=== PATIENT | female | born 1955 | race Asian ===

== ENCOUNTER 2019-04-28 15:22 | Outpatient (RCR) | payer MEDICARE, MEDICAID, SELFPAY ==
[2019-04-28 17:22] LABS: Add Urine Microscopic? NO
[2019-04-28 19:58] LABS: Urine Appearance Clear (CLEAR); Urine Color Yellow (Yellow); pH Urine 5 (5-7)
[2019-04-28 19:59] LABS: Bilirubin Urine Neg (NEGATIVE); Blood Urine Neg (Negative); Glucose Urine UA 2+ (Normal); Ketones Urine Negative (Negative); Leukocyte Esterase Urine Negative (Negative); Nitrate Urine Negative (Negative); Protein Urine Neg (Negative); Specific Gravity, Urine 1.015 (1.005-1.030); Urobilinogen Urine Norm (Negative)
--- NOTE | 2019-04-29 08:43 | ONC FU_ITS ---
Dr. Worrell Patient Follow-Up Note Patient: Judith Herr Unit #: [id number]: 1955 Dicatated By: Srikanth Worrell M.D.Date of Visit:Apr 28, 2019 Onc Med Follow-up/Prog Note Chief Complaint: Breast cancer. History of Present Illness: This is a 63 year-old woman with ductal carcinoma in situ of the left breast, ER/MA positive. She had presented with a lump in the left breast, which she first noticed about a month and a half ago. Unilateral left breast mammogram and ultrasound on 10/21/2018 was BI-RADS 4B, suspicious. Mammogram showed focal asymmetric oval density in the upper outer quadrant measuring 12 mm. By ultrasound it appeared hypoechoic and slightly lobulated. It measured 1.2 x 0.8 x 1.2 cm. Biopsy was recommended. She then underwent ultrasound-guided biopsy on 11/11/2018. Pathology showed a disrupted intraductal papillary lesion felt to be suspicious for papillary carcinoma. With those findings, she underwent left breast lumpectomy on 11/21/2018. Pathology showed ductal carcinoma in situ, nuclear grade 2/3. The specimen included multiple scattered microscopic foci measuring up to 1.1 cm in aggregate. The posterior margin was noted to be involved. Tumor was noted to within 1 mm of the inferior, medial, anterior, and superior margins. Additional excision at the medial margin showed residual microscopic foci of DCIS which was noted to be present within 1 mm of the margin. There was no invasive carcinoma identified. The tumor was noted to be ER positive at 96% and MA positive at 98%. I had seen her initially on 05/12/2018. At that point she was uncertain whether she would take any additional treatment. However, she did agree to see Dr. Andrea, and she ultimately underwent radiation to the left breast. She completed treatment on 01/27/2019 to a total dose of 5856 cGy. She tolerated it well. Her other medical illnesses include hypertension, type 2 diabetes, and degenerative arthritis. Her prior surgeries include hysterectomy/bilateral salpingo-oophorectomy in 1994. She has only a minimal smoking history, having smoked a long time ago, but only for about a year. She is seen for a follow-up visit. She has been feeling pretty good generally, though her energy is somewhat variable and her appetite also seems to vary somewhat. She does have normal activity, though, and she has gained weight. Her ECOG score is 0. She thinks she had a little fever 2 weeks ago, as she felt linen tech association with headache. She has not had hot flashes or night sweating. Recently she has had some swelling in her eyes and increased sinus congestion, which she assumes is allergy related. She sometimes has cough and she occasionally has sharp pain in her upper left chest area. She does not complain of shortness of breath. She has no complaints. She does report having urinary frequency and nocturia. She was given a prescription for oxybutynin a few months ago, but she had no improvement in her symptoms with it. She has pain in her neck/shoulder area and in her lower back. She also has fairly generalized joint pain. She sometimes has numbness/tingling in her feet. Medications: Fish Oil 1 Capsule (of 100 mg) Oral daily, Janumet 1 Tablet (of 50-1000 mg) Oral daily, Lisinopril-hydroCHLOROthiazide 1 Tablet (of 20-25 mg) Oral daily, Magnesium 1 Tablet (of 250 mg) Oral daily, Super B-Complex 1 Capsule Oral daily, Vitamin C 1 Tablet (of 1000 mg) Oral daily, Vitamin D3 1 Capsule (of 1000 Units) Tablet Oral daily Allergies: mushroom soup, penicillin, and strawberry. Review of Systems: Constitutional - Her energy is variable. She has normal activity. Appetite is also variable. She recently has gained weight. She has no fever, but 2 weeks ago she felt warm and had headache. She has not had night sweating or hot flashes. ECOG score is 0, ENMT - She recently has had swelling around her eyes and sinus congestion, presumable allergy related. No mouth sores. No sore throat or difficulty swallowing, Hematologic/Lymphatic - No abnormal bruising or bleeding, Respiratory - No shortness of breath. She sometimes has cough. She occasionally has sharp pain in the area above her left breast. She has no hemoptysis, Cardiovascular - No angina pain. No palpitations, Gastrointestinal - No nausea or vomiting. No heartburn or acid reflux. No diarrhea or constipation. No blood in the stool or black stools, Genitourinary (F) - She has urinary frequency and nocturia. No dysuria or hematuria. No urgency or incontinence, Musculoskeletal - She has pain in her neck, shoulders, and lower back. She also has fairly generalized joint pain, Neurologic - She has occasional headaches. No dizziness. She sometimes has numbness and tingling in her feet, Psychiatric - She has anxiety and some depression, but she is able to manage it OK. She does not sleep well at night. Vital Signs: Performed on Apr 28, 2019 15:39 Height - 61.50 in Weight - 148.6 lbs (HIGH) BSA - 1.67 sq.m BMI - 27.62 Temperature - 98.3 F (LOW) Pulse - 100 /min Respiration - 22 /min BP - 143/67 mm(hg) (HIGH) O2 Sat - 97 % Pain - 5 Physical Examination: Constitutional - She looks good generally, Eyes - Sclerae nonicteric. Conjunctivae clear, ENMT - No lesions noted in the oral cavity, Hematologic/Lymphatic - No cervical, clavicular, or axillary adenopathy, Respiratory - Lungs are clear with good air movement bilaterally, Cardiovascular - Heart rhythm is regular. There is no murmur, gallop, or rub noted, Abdomen - Soft and non-tender. Liver and spleen are not enlarged. There is no abdominal mass or ascites noted and there is no inguinal adenopathy, Extremities - No edema, Neurologic - No focal neurologic deficits noted. Impression: 1. Patient with ductal carcinoma in situ of the left breast, nuclear grade 2/3, ER/MA positive. 2. She underwent left breast lumpectomy on 11/21/2018. Pathology showed DCIS within 1 mm of multiple surgical margins, and there was involvement of the posterior margin. 3. She reports having loss of taste and smell, and she has had significant weight loss over the past 2 years. The cause is uncertain, though it apparently occurred after she weaned herself off of opiate pain medication. Her other medical illnesses include: 4. Hypertension. 5. Type II diabetes. 6. Degenerative arthritis/degenerative disease of the spine. Initially she was uncertain whether she would take any additional treatment. However, she did agree to see Dr. Andrea, and she ultimately underwent radiation to the left breast. She completed treatment on 01/27/2019 to a total dose of 5856 cGy. She tolerated it well. Plan: I reviewed the pathology and we discussed the fact that with ER/MA positive disease there would be a lower risk for recurrence of the breast cancer or for development of new cancer in the contralateral breast if she were to undergo adjuvant hormonal therapy. She is advised that adjuvant hormonal therapy for intraductal breast cancer has not had an impact on survival, but with treatment she would be less likely to require treatment for breast cancer again in the future. In view of her joint pain, she is not a particularly good candidate for treatment with an aromatase inhibitor. However, she has had previous hysterectomy, so that the likelihood of significant side effects with tamoxifen would be low. Nonetheless, as she is reluctant to take any additional medication, she is declining adjuvant therapy. She will be followed on observation/expectant management. I will see her again in 3 months. In the meantime, I will check urinalysis and culture. She also will be given a prescription for cetirizine 10 mg daily for her allergy symptoms. Signed By: Srikanth Worrell M.D. <<Signature on File>>
== END 2019-05-22 23:59 | disposition home or self-care (01) ==
LOC: ONCMED 15:22
PROVIDERS: Family Provider Family Medicine; PCP Family Medicine; Visit Provider Internal Medicine Medical Oncology
DX: Z08 Encounter for follow-up examination after completed treatment for malignant neoplasm (principal); Z86.000 Personal history of in-situ neoplasm of breast; I10 Essential (primary) hypertension; E11.9 Type 2 diabetes mellitus without complications; M19.90 Unspecified osteoarthritis, unspecified site; Z17.0 Estrogen receptor positive status [ER+]; Z92.3 Personal history of irradiation
CPT/HCPCS: 81003; 99214

== ENCOUNTER 2019-11-16 14:09 | Outpatient (CLI) | payer MEDICARE, MEDICAID, SELFPAY ==
--- NOTE | 2019-11-16 14:20 | MM_ITS ---
WS: [id number] BILATERAL DIGITAL DIAGNOSTIC MAMMOGRAM MAMMOGRAPHY WITH CAD CLINICAL INFORMATION: HX OF BREAST CA HISTORY: Tender left breast. History of left lumpectomy with radiation therapy COMPARISON: October 21, 2018 TECHNIQUE: Bilateral CC, MLO, and ML views. FINDINGS: The breasts are composed of heterogeneous fibroglandular density, which can limit the detection of sm all underlying mass lesions. Postoperative changes lumpectomy upper outer left breast. No suspicious focal mass, asymmetry, calcifications, or architectural distortion. No evidence of charo gnancy. MM/[id number] IMPRESSION: BI-RADS: 2-Benign FOLLOW UP: 1 Year Follow-up Recommend return to annual diagnostic mammography.
== END 2019-11-16 14:10 | disposition home or self-care (01) ==
PROVIDERS: PCP Family Medicine; Visit Provider Internal Medicine Medical Oncology
DX: Z85.3 Personal history of malignant neoplasm of breast (principal)
CPT/HCPCS: 77066

== ENCOUNTER 2019-11-25 15:07 | Outpatient (CLI) | payer MEDICARE, MEDICAID, SELFPAY ==
--- NOTE | 2019-11-28 15:44 | ONC FU_ITS ---
Dr. Worrell Patient Follow-Up Note Patient: Judith Herr Unit #: [id number]: 1955 Dicatated By: Srikanth Worrell M.D.Date of Visit:Nov 25, 2019 Onc Med Follow-up/Prog Note Chief Complaint: Breast cancer. History of Present Illness: This is a 63 year-old woman with ductal carcinoma in situ of the left breast, ER/MT positive. She had presented with a lump in the left breast, which she first noticed about a month and a half ago. Unilateral left breast mammogram and ultrasound on 10/21/2018 was BI-RADS 4B, suspicious. Mammogram showed focal asymmetric oval density in the upper outer quadrant measuring 12 mm. By ultrasound it appeared hypoechoic and slightly lobulated. It measured 1.2 x 0.8 x 1.2 cm. Biopsy was recommended. She then underwent ultrasound-guided biopsy on 11/11/2018. Pathology showed a disrupted intraductal papillary lesion felt to be suspicious for papillary carcinoma. With those findings, she underwent left breast lumpectomy on 11/21/2018. Pathology showed ductal carcinoma in situ, nuclear grade 2/3. The specimen included multiple scattered microscopic foci measuring up to 1.1 cm in aggregate. The posterior margin was noted to be involved. Tumor was noted to within 1 mm of the inferior, medial, anterior, and superior margins. Additional excision at the medial margin showed residual microscopic foci of DCIS which was noted to be present within 1 mm of the margin. There was no invasive carcinoma identified. The tumor was noted to be ER positive at 96% and MT positive at 98%. I had seen her initially on 05/12/2018. At that point she was uncertain whether she would take any additional treatment. However, she did agree to see Dr. Andrea, and she ultimately underwent radiation to the left breast. She completed treatment on 01/27/2019 to a total dose of 5856 cGy. She tolerated it well. I had seen her for a follow-up visit on 04/28/2019. I reviewed potential benefits and adverse effects associated with adjuvant hormonal therapy. She declined treatment. As such, she is being followed on observation/expectant management. Her other medical illnesses include hypertension, type 2 diabetes, and degenerative arthritis. Her prior surgeries include hysterectomy/bilateral salpingo-oophorectomy in 1994. She has only a minimal smoking history, having smoked a long time ago, but only for about a year. She is seen for a follow-up visit. She has been feeling good generally. She has good energy and activity tolerance. ECOG score is 0. Appetite is somewhat variable, but adequate. She does not have fever. She does have some hot flashes, but not bad. She does report having bad allergies. She does not complain of shortness of breath or cough. She has pain occasionally in the upper sternal area. She also has been having soreness/discomfort at times in her left breast. She has no GI or complaints. She does have some arthritis in her hands and knees, and she has some lower back pain. She sometimes has headache. She reports having some numbness in her left hand and in her right foot. Medications: Fish Oil 1 Capsule (of 100 mg) Oral daily, Janumet 1 Tablet (of 50-1000 mg) Oral daily, Lisinopril-hydroCHLOROthiazide 1 Tablet (of 20-25 mg) Oral daily, Magnesium 1 Tablet (of 250 mg) Oral daily, Super B-Complex 1 Capsule Oral daily, Vitamin C 1 Tablet (of 1000 mg) Oral daily, Vitamin D3 1 Capsule (of 1000 Units) Tablet Oral daily Allergies: mushroom soup, penicillin, and strawberry. Review of Systems: Constitutional - Her energy is good and she has been feeling good. She has normal activity. Her appetite is okay and weight is down a few pounds. No fevers or night sweats. She has hot flashes, these have improved. ECOG score is, ENMT - She has seasonal allergies. No mouth sores. No sore throat or difficulty swallowing, Hematologic/Lymphatic - She bruises easily, Respiratory - No shortness of breath. No cough. No pleuritic pain or hemoptysis, Cardiovascular - She has occasional anginal pain. No palpitations, Gastrointestinal - No nausea or vomiting. She has occasional heartburn if she eats late in the evenings. No diarrhea or constipation. No blood in the stool or black stools, Genitourinary (F) - No dysuria or hematuria. She has urinary frequency at night. No urgency or incontinence, Musculoskeletal - She is having alot of arthritic pain in her hands, knees, and lower back, Integumentary - No skin complications, Neurologic - No headache or dizziness. She has numbness and tingling in her hands and feet. No other focal neurologic symptoms, Psychiatric - She has some anxiety. No depression. No insomnia. Vital Signs: Performed on Nov 25, 2019 15:33 Height - 61.50 in Weight - 145.0 lbs (LOW) BSA - 1.66 sq.m BMI - 26.95 Temperature - 97.2 F (LOW) Pulse - 91 /min Respiration - 18 /min BP - 124/66 mm(hg) O2 Sat - 96 % Pain - 5 Physical Examination: Constitutional - She looks good generally, Eyes - Sclerae nonicteric. Conjunctivae clear, ENMT - No lesions noted in the oral cavity, Hematologic/Lymphatic - No cervical, clavicular, or axillary adenopathy, Respiratory - Lungs are clear with good air movement bilaterally, Cardiovascular - Heart rhythm is regular. There is no murmur, gallop, or rub noted, Abdomen - Soft. Liver and spleen are not enlarged. There is no abdominal mass or ascites noted and there is no inguinal adenopathy, Extremities - No edema, Neurologic - No focal neurologic deficits noted. Impression: 1. Patient with ductal carcinoma in situ of the left breast, nuclear grade 2/3, ER/MT positive. 2. She underwent left breast lumpectomy on 11/21/2018. Pathology showed DCIS within 1 mm of multiple surgical margins, and there was involvement of the posterior margin. 3. She reports having loss of taste and smell, and she has had significant weight loss over the past 2 years. The cause is uncertain, though it apparently occurred after she weaned herself off of opiate pain medication. Her other medical illnesses include: 4. Hypertension. 5. Type II diabetes. 6. Degenerative arthritis/degenerative disease of the spine. Initially she was uncertain whether she would take any additional treatment. However, she did agree to see Dr. Andrea, and she ultimately underwent radiation to the left breast. She completed treatment on 01/27/2019 to a total dose of 5856 cGy. She tolerated it well. I had seen her for a follow-up visit in April 2019. I discussed the possibility of adjuvant hormonal therapy. She declined treatment. She is being followed on observation/expectant management. At this point she appears to be doing well clinically with no evidence of recurrence of the breast cancer. Plan: She remains on observation/expectant management. I will see her again with her surveillance mammograms in 1 year. Signed By: Srikanth Worrell M.D. <<Signature on File>>
== END 2019-11-25 15:08 | disposition home or self-care (01) ==
LOC: ONCMED 15:13
PROVIDERS: PCP Family Medicine; Visit Provider Internal Medicine Medical Oncology
DX: Z08 Encounter for follow-up examination after completed treatment for malignant neoplasm (principal); Z85.3 Personal history of malignant neoplasm of breast; I10 Essential (primary) hypertension; E11.9 Type 2 diabetes mellitus without complications; M19.90 Unspecified osteoarthritis, unspecified site; M48.9 Spondylopathy, unspecified; Z92.3 Personal history of irradiation
CPT/HCPCS: G0463

== ENCOUNTER 2020-05-03 13:23 | Emergency (ER) | payer MEDICARE, MEDICAID, SELFPAY ==
[2020-05-03 13:27] VITALS: BP 145/82; PULSE 104; RESP 16; TEMP 36.9; O2SAT 96; BMI 26.8
--- NOTE | 2020-05-03 13:52 | ED_ITS ---
HPI - Allergic Reaction General: Chief complaint: Allergic Reaction Stated complaint: poss allergic reaction Time Seen by Provider: 05/03/20 13:35 History of Present Illness: HPI narrative: 64 yo female, coming a rash on her face and neck she has had a hive for the last several weeks. She is taken hydroxyzine with minimal relief she is avoiding all make-ups creams and lotions to her face. She does not have any make-up on now. She is not hydrating difficulty breathing or swallowing. MD complaint: hives and facial swelling Onset (ago): week(s) Exposure: unknown Associated symptoms: Reports facial swelling and rash; Deny abdominal pain, difficulty breathing, dysphagia, dizziness, hoarseness, itching, lip swelling, nausea, tongue swelling or vomiting Severity: moderate Treatment prior to arrival: other (Hydroxyzine) Previous Allergic Reaction History: none Review of Systems Const: Denies: fever(s), chills, body aches, change in appetite, fatigue or malaise ENMT: Denies: hoarseness Card: Denies: chest pain, edema, dyspnea on exertion or orthopnea Resp: Denies: dyspnea, productive cough or non-productive cough GI: Denies: abdominal pain, nausea, vomiting or dysphagia : Denies: flank pain, difficulty voiding, dysuria, urinary frequency or urinary urgency Skin/Breast: Denies: rash or pruritus Neuro: Denies: dizziness All/Imm: Reports: facial swelling; Denies: tongue swelling PFS ED PFSH: Medical History Enrolled in chronic care management Physical Exam Const: COMMON NORMALS: no acute distress GENERAL APPEARANCE: cooperative and comfortable ORIENTATION/CONSCIOUSNESS: Yes awake, Yes oriented to person, Yes oriented to place and Yes oriented to time HENMT: COMMON NORMALS: normocephalic, atraumatic, hearing grossly normal bilaterally, external ears normal, EAC's normal, TM's normal bilaterally, Normal nasal mucous membranes and turbinates present, moist oral mucous membranes and oropharynx normal HEAD & SCALP: normocephalic and atraumatic NOSE: Normal nasal mucous membranes and turbinates present EXTERNAL EAR: Yes external ears normal EXTERNAL AUDITORY CANAL: EAC's normal TYMPANIC MEMBRANE: TM's normal bilaterally Eye: COMMON NORMALS: Equal, round and reactive pupils present, EOMs intact bilaterally, conjunctivae normal and no scleral icterus CONJUNCTIVA: Yes conjunctivae normal PUPIL: Yes Equal, round and reactive pupils present Neck/C-Spine: COMMON NORMALS: full ROM, no lymphadenopathy, supple and no JVD Lymph: LYMPHATIC: no lymphadenopathy noted and no lymphedema noted Resp: COMMON NORMALS: normal respiratory effort, No retractions, No use of accessory muscles and clear to auscultation bilaterally AUSCULTATION: clear to auscultation bilaterally Cardio: COMMON NORMALS: no JVD, regular rate, regular rhythm and No murmurs present (Cardio) RATE: regular rate RHYTHM: regular rhythm GI: COMMON NORMALS: Soft to palpation and No hepatosplenomegaly present AUSCULTATION: Yes normoactive bowel sounds PALPATION: Yes Soft to palpation, No Tenderness to palpation present (GI), No Guarding due to palpation present (GI) and Yes No hepatosplenomegaly present Extremity: COMMON NORMALS: normal to inspection, capillary refill normal, no clubbing, cyanosis or edema, no calf tenderness and no pedal edema Neuro: SENSORIUM/ORIENTATION: Yes oriented to person, Yes oriented to place and Yes oriented to time Skin: NARRATIVE SKIN EXAM: Urticaria of the face and neck anteriorly none in the extremities or trunk. There is no evidence of oral pharyngeal edema no diff iculty with speech or swallowing. Course Vital Signs: Vital signs: Vital Signs Temperature 98.4 F 05/03/20 13:27 Pulse Rate 75 05/03/20 14:12 Respiratory Rate 16 05/03/20 14:12 Blood Pressure 130/85 05/03/20 14:12 Pulse Oximetry 97 05/03/20 14:12 MDM - Allergic Reaction MDM Narrative: Medical decision making narrative: Refill hydroxyzine start oral steroid refer to dermatology Discharge Plan Discharge Patient Disposition: Home Clinical Impression: Urticaria Condition: Stable Prescriptions: New Medrol (Ren) 4 mg tablets,dose pack See Rx Instructions .ROUTE .COMPLEX Qty: 21 RF: 0 hydroxyzine HCl 25 mg tablet 25 mg PO Q8H PRN (Reason: itching) Qty: 20 RF: 0 No Action lisinopril-hydrochlorothiazide 20-25 mg tablet 1 tab PO DAILY Qty: 14 RF: 0 Discharge Orders: Discharge ED (Routine); Ordered 05/03/20 Ordered By: Rikki Elder Referrals: Ashu Jonas MD [Primary Care Provider] - Discharge Diet: Usual diet Activity Restrictions/Additional Instructions: Case management will call to make an appointment with a mortgage banker for you. Coding Level of Care Code ED Stakeholder Manager for Chg Fwd Exam Comprehensive
[2020-05-03 14:12] VITALS: BP 130/85; PULSE 75; RESP 16; O2SAT 97
[2020-05-03] MEDS: dexamethasone 10 mg/mL INJ IM (14:12)
--- NOTE | 2020-05-03 14:55 | PC.NURSE ---
Read and agree with assessment.
--- NOTE | 2020-05-04 08:52 | DCPLANNER ---
installation manager had message to schedule a follow up appointment for patient with dermatology. installation manager called the office of Dr. Nava, spoke with Ed, a follow up appointment is scheduled for Monday, May 04, 2020 at 10:45. installation manager called patient and gave patient the appointment information. installation manager called the clinic and told the clinic that patient will make the appointment.
--- NOTE | 2020-05-13 14:40 | DCPLANNER ---
Patient had a follow up appointment scheduled for 05.04.20 with dermatology - patient did attend appointment.
== END 2020-05-03 14:12 | disposition home or self-care (01) ==
PROVIDERS: Emergency Provider Family Medicine; PCP Family Medicine
DX: L50.9 Urticaria, unspecified (principal)
CPT/HCPCS: 12345; 96372; 99281; 99283; J1100

== ENCOUNTER 2020-09-27 10:09 | Outpatient (CLI) | payer MEDICARE, MEDICAID, SELFPAY ==
--- NOTE | 2020-09-27 10:18 | MM_ITS ---
WS: [id number] BILATERAL DIGITAL DIAGNOSTIC MAMMOGRAM MAMMOGRAPHY WITH CAD CLINICAL INFORMATION: HX OF BREAST CA;SORENESS IN BOTH BREASTS COMPARISON: November 16, 2019 TECHNIQUE: Bilateral CC, MLO, and ML views. FINDINGS: The breasts are composed of heterogeneous fibroglandular density, which can limit the detection of sm all underlying mass lesions. A few punctate calcifications. Prior left lumpectomy upper outer left br east. No suspicious focal mass, asymmetry, calcifications, or architectural distortion. No evidence of charo gnancy. MM/[id number] IMPRESSION: BI-RADS: 2-Benign FOLLOW UP: 1 Year Follow-up Recommend return to annual diagnostic mammography.
== END 2020-09-27 10:10 | disposition home or self-care (01) ==
LOC: RADSHAW 10:13
PROVIDERS: PCP Family Medicine; Visit Provider Internal Medicine Medical Oncology
DX: Z85.3 Personal history of malignant neoplasm of breast (principal); N64.4 Mastodynia
CPT/HCPCS: 77066

== ENCOUNTER 2021-01-23 16:00 | Outpatient (CLI) | payer MEDICARE, MEDICAID, SELFPAY ==
--- NOTE | 2021-01-24 06:31 | ONC FU_ITS ---
Dr. Worrell Patient Follow-Up Note Patient: Judith Herr Unit #: [id number]: 1955 Dicatated By: Srikanth Worrell M.D.Date of Visit:Jan 23, 2021 Onc Med Follow-up/Prog Note Chief Complaint: Breast cancer. History of Present Illness: This is a 65 year-old woman with ductal carcinoma in situ of the left breast, ER/TN positive. She had presented with a lump in the left breast, which she first noticed about a month and a half ago. Unilateral left breast mammogram and ultrasound on 10/21/2018 was BI-RADS 4B, suspicious. Mammogram showed focal asymmetric oval density in the upper outer quadrant measuring 12 mm. By ultrasound it appeared hypoechoic and slightly lobulated. It measured 1.2 x 0.8 x 1.2 cm. Biopsy was recommended. She then underwent ultrasound-guided biopsy on 11/11/2018. Pathology showed a disrupted intraductal papillary lesion felt to be suspicious for papillary carcinoma. With those findings, she underwent left breast lumpectomy on 11/21/2018. Pathology showed ductal carcinoma in situ, nuclear grade 2/3. The specimen included multiple scattered microscopic foci measuring up to 1.1 cm in aggregate. The posterior margin was noted to be involved. Tumor was noted to within 1 mm of the inferior, medial, anterior, and superior margins. Additional excision at the medial margin showed residual microscopic foci of DCIS which was noted to be present within 1 mm of the margin. There was no invasive carcinoma identified. The tumor was noted to be ER positive at 96% and TN positive at 98%. I had seen her initially on 05/12/2018. At that point she was uncertain whether she would take any additional treatment. However, she did agree to see Dr. Andrea, and she ultimately underwent radiation to the left breast. She completed treatment on 01/27/2019 to a total dose of 5856 cGy. She tolerated it well. I had seen her for a follow-up visit on 04/28/2019. I reviewed potential benefits and adverse effects associated with adjuvant hormonal therapy. She declined treatment. As such, she has been followed on expectant management. Her other medical illnesses include hypertension, type 2 diabetes, and degenerative arthritis. Her prior surgeries include hysterectomy/bilateral salpingo-oophorectomy in 1994. She has only a minimal smoking history, having smoked a long time ago, but only for about a year. She is seen for a follow-up visit. She has been feeling good generally. She says that she does get tired, but she has normal activity. ECOG score 0. Her appetite is not very good. She says she has not been able to smell for a long time. She has not had fever or night sweats. She has just occasional hot flashes. She has some sinus drainage. She has not had sore mouth or throat. She has no shortness of breath or cough. She has pain occasionally in her upper left chest area. She has no GI complaints. She says she is going to be having a screening colonoscopy this year. She has some urinary frequency and nocturia. She has fairly generalized joint pain including her hands, knees, and ankles. She also has some pain in her neck and back. She has had headache occasionally in the left restorationism area and she sometimes has dizziness. She also sometimes has numbness in her hands. Medications: Fish Oil 1 Capsule (of 100 mg) Oral daily, Janumet 1 Tablet (of 50-1000 mg) Oral daily, Lisinopril-hydroCHLOROthiazide 1 Tablet (of 20-25 mg) Oral daily, Magnesium 1 Tablet (of 250 mg) Oral daily, Super B-Complex 1 Capsule Oral daily, Vitamin C 1 Tablet (of 1000 mg) Oral daily, Vitamin D3 1 Capsule (of 1000 Units) Tablet Oral daily Allergies: mushroom soup, penicillin, and strawberry. Vital Signs: Performed on Jan 23, 2021 16:24 Height - 61.50 in Weight - 148.2 lbs (HIGH) BSA - 1.67 sq.m BMI - 27.55 Temperature - 97.5 F (LOW) Pulse - 74 /min Respiration - 18 /min BP - 157/83 mm(hg) (HIGH) O2 Sat - 98 % Pain - 6 Fatigue - 8 Physical Examination: Constitutional - She looks good generally, Eyes - Sclerae nonicteric. Conjunctivae clear, ENMT - No lesions noted in the oral cavity, Hematologic/Lymphatic - No cervical or clavicular adenopathy, Respiratory - Lungs are clear with good air movement bilaterally, Cardiovascular - Heart rhythm is regular. There is no murmur, gallop, or rub noted, Breasts - There is focal mild tenderness in the upper left chest wall/superior breast. There are no breast masses noted. There is no axillary adenopathy, Abdomen - Soft. Liver and spleen are not enlarged. There is no abdominal mass or ascites noted and there is no inguinal adenopathy, Extremities - No edema, Neurologic - No focal neurologic deficits noted. Problem List: 1. Ductal carcinoma in situ of the left breast, nuclear grade 2/3, ER/TN positive. 2. She had loss of taste and smell, and she has had significant weight loss over a period of about 2 years. A specific cause was not determined, though it apparently occurred after she had weaned herself off of opiate pain medication. 3. Hypertension. 4. Type II diabetes. 5. Degenerative arthritis/degenerative disease of the spine. 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 She underwent left breast lumpectomy on 11/21/2018. Pathology showed DCIS within 1 mm of multiple surgical margins, and there was involvement of the posterior margin. Initially she was uncertain whether she would take any additional treatment. However, she did agree to see Dr. Andrea, and she ultimately underwent radiation to the left breast. She completed treatment on 01/27/2019 to a total dose of 5856 cGy. She tolerated it well. She was then followed expectantly, as she had declined adjuvant hormonal therapy. During followup she has been doing well clinically with no evidence of recurrence of the breast cancer. She continues on expectant management. She continues yearly surveillance with bilateral diagnostic mammograms. She will be scheduled for a follow-up visit in 1 year. Signed By: Srikanth Worrell M.D. <<Signature on File>>
== END 2021-01-23 16:01 | disposition home or self-care (01) ==
PROVIDERS: PCP Family Medicine; Visit Provider Internal Medicine Medical Oncology
DX: Z08 Encounter for follow-up examination after completed treatment for malignant neoplasm (principal); Z85.3 Personal history of malignant neoplasm of breast; I10 Essential (primary) hypertension; E11.9 Type 2 diabetes mellitus without complications; M47.9 Spondylosis, unspecified; Z92.3 Personal history of irradiation
CPT/HCPCS: G0463

== ENCOUNTER 2021-11-02 08:22 | Outpatient (CLI) | payer MEDICARE, MEDICAID, SELFPAY ==
--- NOTE | 2021-11-02 08:30 | MM_ITS ---
WS: [id number] DIAGNOSTIC BILATERAL DIGITAL BREAST TOMOSYNTHESIS MAMMOGRAPHY WITH CAD HISTORY: SCREENING, history of LEFT breast cancer. COMPARISON: None available. TECHNIQUE: Bilateral craniocaudad, mediolateral oblique, and mediolateral views are submitted with to mosjude and HERMILA. Computer aided detection utilized. Breast composition: The breasts are heterogeneously dense, which may obscure small masses. Scattered fibroglandular densities are similar to prior studies. Volume loss and mild skin thickening involving the anterior LEFT breast from prior surgery. No recurrent mass. MM/[place] [id number] IMPRESSION: BI-RADS: 2-Benign FOLLOW UP: 1 Year Follow-up
== END 2021-11-02 08:23 | disposition home or self-care (01) ==
LOC: RAD 08:24
PROVIDERS: PCP Family Medicine; Visit Provider Internal Medicine Medical Oncology
DX: Z12.31 Encounter for screening mammogram for malignant neoplasm of breast (principal); Z85.3 Personal history of malignant neoplasm of breast
CPT/HCPCS: 77062

== ENCOUNTER → 2021-12-05 07:43 | Outpatient (BNVA) | payer MEDICARE, MEDICAID, SELFPAY | PROVIDERS: PCP Family Medicine; Visit Provider Podiatrist Foot & Ankle Surgery | DX: E11.8 Type 2 diabetes mellitus with unspecified complications (principal); M21.41 Flat foot [pes planus] (acquired), right foot; M21.42 Flat foot [pes planus] (acquired), left foot; I83.893 Varicose veins of bilateral lower extremities with other complications; M19.072 Primary osteoarthritis, left ankle and foot | CPT/HCPCS: 99203; 99204 ==

== ENCOUNTER 2022-02-26 11:01 | Outpatient (CLI) | payer MEDICARE, MEDICAID, SELFPAY | END 2022-02-26 11:02 | disposition home or self-care (01) | LOC: SPT 11:02 | PROVIDERS: PCP Family Medicine; Visit Provider Podiatrist Foot & Ankle Surgery | DX: Z46.89 Encounter for fitting and adjustment of other specified devices (principal); E11.8 Type 2 diabetes mellitus with unspecified complications; M21.41 Flat foot [pes planus] (acquired), right foot; M21.42 Flat foot [pes planus] (acquired), left foot | CPT/HCPCS: 97760; L3030 ==

== ENCOUNTER 2022-11-07 11:22 | Outpatient (CLI) | payer MEDICARE, MEDICAID, SELFPAY ==
--- NOTE | 2022-11-07 11:28 | MM_ITS ---
WS: [id number] VIEWS: MLO, CC, and ML views both breasts. 3D digital tomosynthesis is also included in this exam. C omparisons 11/11/2018, 11/16/2019, 10/09/2020, 11/02/2021. Findings: There was no sign of mass, architectural distortion or suspicious calcification in either breast. Chr onic deformity and skin thickening of the left breast secondary to prior surgery. This is stable in a ppearance.The breasts are heterogeneously dense which may obscure small masses. MM/[place] [id number] Impression: BI-RADS: 2-Benign finding. FOLLOW-UP: 1 Year Follow-up This mammogram was also analyzed by the Computer Aided Detection System R2 Imag [employer] Manager Combination.
== END 2022-11-07 11:23 | disposition home or self-care (01) ==
PROVIDERS: PCP Family Medicine; Visit Provider Internal Medicine Medical Oncology
DX: D05.12 Intraductal carcinoma in situ of left breast (principal)
CPT/HCPCS: 77062; G0279

== ENCOUNTER 2023-02-08 12:58 | Outpatient (CLI) | payer MEDICARE, MEDICAID, SELFPAY ==
--- NOTE | 2023-02-08 13:08 | XR_ITS ---
WS: [id number] SCREENING DEXA SCAN [employer] CLINICAL INFORMATION: OSTEOPOROSIS SCREENING COMPARISON: None. FINDINGS: The L1-L4 bone mineral density measures 1.240 g/cm2. This corresponds to a T score score of 0.5 and Z score of 2.6. Left femoral neck bone mineral density measures 1.235 g/cm2. This corresponds to a T score of 1.8 and Z score of 3.5. Right femoral neck bone mineral density measures 1.196 g/cm2. This corresponds to a T score 1.5of and Z score of 3.2. Mean femoral neck bone mineral density measures 1.216 g/cm2. This corresponds to a T score of 1.7 and Z score of 3.3. IMPRESSION: Normal bone mineralization. Patient's FRAX calculated 10 year probability for major osteoporotic fracture is 6.6% and osteoporoti c hip fracture is 0.3%.
== END 2023-02-08 12:59 | disposition home or self-care (01) ==
LOC: RAD 13:01
PROVIDERS: PCP Family Medicine; Visit Provider Family Medicine
DX: Z78.0 Asymptomatic menopausal state (principal)
CPT/HCPCS: 77080

== ENCOUNTER → 2023-08-20 23:59 | Oncology outpatient (recurring) (ONCR) | payer MEDICARE, MEDICAID, SELFPAY | END | disposition home or self-care (01) | PROVIDERS: PCP Family Medicine; Visit Provider Internal Medicine Medical Oncology | DX: Z08 Encounter for follow-up examination after completed treatment for malignant neoplasm (principal); Z85.3 Personal history of malignant neoplasm of breast; Z90.12 Acquired absence of left breast and nipple; Z92.3 Personal history of irradiation | CPT/HCPCS: 99213; 99214 ==

== ENCOUNTER 2023-10-30 12:45 | Oncology outpatient (recurring) (ONCR) | payer MEDICARE, MEDICAID, SELFPAY | END 2023-11-20 23:59 | disposition home or self-care (01) | PROVIDERS: PCP Family Medicine; Visit Provider Internal Medicine Medical Oncology | DX: Z08 Encounter for follow-up examination after completed treatment for malignant neoplasm (principal); Z85.3 Personal history of malignant neoplasm of breast; Z92.3 Personal history of irradiation | CPT/HCPCS: 99214 ==

== ENCOUNTER 2023-11-13 10:37 | Outpatient (CLI) | payer MEDICARE, MEDICAID, SELFPAY ==
--- NOTE | 2023-11-13 11:00 | MM_ITS ---
WS: [id number] BILATERAL 3D TOMOSYNTHESIS DIGITAL DIAGNOSTIC MAMMOGRAPHY WITH CAD CLINICAL INFORMATION: surveillance, history of breast cancer HISTORY: LEFT breast cancer COMPARISON: 2022 TECHNIQUE: Bilateral CC, MLO, and ML views. FINDINGS: The breasts are composed of heterogeneous fibroglandular density, which can limit the detection of sm all underlying mass lesions. Prior postoperative changes lumpectomy LEFT breast. Treatment-related ch anges LEFT breast. A few incidental punctate calcifications bilaterally. No suspicious focal mass, asymmetry, calcifications, or architectural distortion. No evidence of charo gnancy. MM/[place] [id number] IMPRESSION: BI-RADS: 2-Benign FOLLOW UP: 1 Year Follow-up Recommend return to annual diagnostic mammography.
== END 2023-11-13 10:38 | disposition home or self-care (01) ==
LOC: RAD 10:38
PROVIDERS: PCP Family Medicine; Visit Provider Nurse Practitioner Family
DX: D05.12 Intraductal carcinoma in situ of left breast (principal); R92.333 Mammographic heterogeneous density, bilateral breasts; R92.323 Mammographic fibroglandular density, bilateral breasts; Z98.890 Other specified postprocedural states; R92.1 Mammographic calcification found on diagnostic imaging of breast
CPT/HCPCS: 77062; G0279

== ENCOUNTER → 2024-02-12 07:53 | Outpatient (BNVA) | payer MEDICARE, MEDICAID, SELFPAY | PROVIDERS: PCP Family Medicine; Visit Provider Surgery | DX: Z12.11 Encounter for screening for malignant neoplasm of colon (principal); K21.9 Gastro-esophageal reflux disease without esophagitis; R11.0 Nausea; R03.0 Elevated blood-pressure reading, without diagnosis of hypertension | CPT/HCPCS: 99203 ==

== ENCOUNTER 2024-10-28 10:56 | Oncology outpatient (recurring) (ONCR) | payer MEDICARE, MEDICAID, SELFPAY | END 2024-11-19 23:59 | disposition home or self-care (01) | PROVIDERS: PCP Family Medicine; Visit Provider Internal Medicine | DX: Z53.9 Procedure and treatment not carried out, unspecified reason (principal); Z08 Encounter for follow-up examination after completed treatment for malignant neoplasm; Z85.3 Personal history of malignant neoplasm of breast; Z92.3 Personal history of irradiation | CPT/HCPCS: 99214 ==

== ENCOUNTER 2024-12-02 07:58 | Outpatient (CLI) | payer OTHER, MEDICAID, SELFPAY ==
--- NOTE | 2024-12-02 08:00 | MM_ITS ---
WS: [id number] DIAGNOSTIC BILATERAL DIGITAL BREAST TOMOSYNTHESIS MAMMOGRAPHY WITH CAD HISTORY: intraductal carcinoma in situ of left breast COMPARISON: 11/13/2023, 11/07/2022 TECHNIQUE: Bilateral craniocaudad, mediolateral oblique, and mediolateral views are submitted with tomosynthesis and SM. Computer aided detection utilized. Breast composition: The breasts are heterogeneously dense, which may obscure small masses. Benign calcifications in each breast. Mild volume loss in the LEFT breast from prior lumpectomy. Bilateral calcifications in each breast. Stable parenchymal pattern over several prior years. No suspicious grouping of calcifications or distortion. MM/MM diag BI tomosynthesis [id number] IMPRESSION: BI-RADS: 2 - Benign FOLLOW UP: 1 Year Follow-up
== END 2024-12-02 07:59 | disposition home or self-care (01) ==
LOC: RAD 08:00
PROVIDERS: Visit Provider Nurse Practitioner
DX: D05.12 Intraductal carcinoma in situ of left breast (principal); R92.333 Mammographic heterogeneous density, bilateral breasts; R92.1 Mammographic calcification found on diagnostic imaging of breast; Z98.890 Other specified postprocedural states
CPT/HCPCS: 77062; G0279